=== PATIENT | male | born 1950 | race Caucasian/White ===

== ENCOUNTER → 2016-09-02 | Outpatient (CLI) | payer OTHER, MEDICARE ==
--- NOTE | 2016-09-02 10:30 | US ---
Renal Sonography, retroperitoneal complete HISTORY: Proteinuria, post right nephrectomy for renal cell cancer COMPARISON: CT abdomen and pelvis November 21, 2011 FINDINGS: The patient has a solitary left kidney. There is no hydronephrosis or perinephric fluid. Re nal cortical echogenicity is slightly prominent compared to the medullary pyramids. A left lower pole and smaller upper pole peripelvic cyst were present previously. There is no solid renal mass lesion or stone formation. A left ureteral jet is present in the urinary bladder. Prevoid urinary bladder vo lume = 83 mL. Postvoid residual = 20 mL. No urinary bladder abnormality is identified. Impression: Mildly increased renal cortical echogenicity is consistent with medical renal disease. Th ere is no obstruction.
== END ==
LOC: CIMAGING 09:05
PROVIDERS: ATTEND Internal Medicine Nephrology
DX: N18.9 Chronic kidney disease, unspecified (principal)
CPT/HCPCS: 76770-PO

== ENCOUNTER → 2016-11-18 | Outpatient (CLI) | payer OTHER, MEDICARE | LOC: BMCIMAGING 10:28 | PROVIDERS: ATTEND Internal Medicine | DX: R05 Cough (principal) ==

== ENCOUNTER 2017-04-29 07:01 | Inpatient (IN) | payer OTHER, MEDICARE ==
[2017-04-29] MEDS ORDERED: FAMOTIDINE 20 MG TAB PO ONE (07:03)
[2017-04-29] MEDS ORDERED: DIAZEPAM 5 MG TAB PO ONE (07:03)
[2017-04-29] MEDS ORDERED: ASPIRIN EC 325 MG TAB PO ONE (07:03)
[2017-04-29] MEDS ORDERED: diphenhydrAMINE 25 MG CAP PO ONE (07:03)
[2017-04-29] MEDS ORDERED: NS 1,000 ML IV ONE (07:03)
--- NOTE | 2017-04-29 07:21 | CPEKG ---
Heart Rate: 48 RR Interval: 1250 P-R Interval: 164 QRSD Interval: 152 QT Interval: 456 QTC Interval: 408 P [place]: 58 QRS [place]: 93 T Wave [place]: -15 EKG Severity - ABNORMAL ECG - EKG Impression: SINUS BRADYCARDIA EKG Impression: RBBB AND LPFB EKG Impression: BORDERLINE INFERIOR Q WAVES Electronically Signed By: Nathaly Mojica 29-Apr-2017 10:00:10
[2017-04-29] MEDS ORDERED: ASPIRIN 81 MG CHEWABLE TAB ONE (07:26)
[2017-04-29 07:35] LABS: % IMMATURE GRANULYOCYTES 0.2 % (0.0-1.1); ABSOLUTE IMMATURE GRANULOCYTES 0.01 10^3/uL (0.00-0.10); ADD DIFF? NO; ADD MORPH? NO; ADD SCAN? NO; ATYPICAL LYMPHOCYTE FLAG 10 (0-99); FRAGMENT RBC FLAG 0 (0-99); HEMATOCRIT 47.3 % (40.0-51.0); HEMOGLOBIN 16.7 g/dL (13.7-17.5); LEFT SHIFT FLG 0 (0-99); LIPEMIA HEMOLYSIS FLAG 90 (0-99); MEAN CELL HEMOGLOBIN 31.7 pg (27.9-34.1); MEAN CELL HEMOGLOBIN CONCENTR. 35.3 g/dL (32.4-36.7); MEAN CELL VOLUME 89.8 fL (81.5-99.8); MEAN PLATELET VOLUME 10.7 fL (8.7-11.7); PLATELET CLUMPS FLAG 0 (0-99); PLATELET COUNT 216 10^3/uL (150-400); RED BLOOD CELL COUNT 5.27 10^6/uL (4.40-6.38); RED CELL DISTRIBUTION WIDTH 13.4 % (11.5-15.2)
[2017-04-29] MEDS ORDERED: ASPIRIN EC 81 MG TAB PO ONE (07:40)
[2017-04-29 07:43] LABS: INR 1.07 (0.83-1.16); PROTIME(PATIENT) 13.8 SEC (12.0-15.0)
[2017-04-29 07:49] LABS: ANION GAP 13 mEq/L (8-16); CALCIUM 9.3 mg/dL (8.5-10.4); CARBON DIOXIDE 22 mEq/l (22-31); CHLORIDE 106 mEq/L (97-110); CHOLESTEROL 175 mg/dL (140-220); CHOLESTEROL/HDL RATIO 5.15 RATIO (1.00-4.97); CREATININE 1.5 mg/dL (0.7-1.3); GLOMERULAR FILTRATION RATE 47; GLUCOSE 94 mg/dL (70-100); HIGH DENSITY LIPOPROTEIN 34 mg/dL (40-65); LOW DENSITY LIPOPROTEIN 119 mg/dL (80-100); MAGNESIUM 1.9 mg/dL (1.6-2.3); NON-HIGH DENSITY LIPOPROTEIN 141 mg/dL (90-129); POTASSIUM 4.2 mEq/L (3.5-5.2); SODIUM 141 mEq/L (134-144); TRIGLYCERIDE 110 mg/dL (40-150); VERY LOW DENSITY LIPOPROTEINS 22 mg/dL (8-25)
[2017-04-29] MEDS ORDERED: fentaNYL 100 MCG/2 ML INJ ONE (08:06)
[2017-04-29] MEDS ORDERED: MIDAZOLAM 2 MG/2 ML VIAL ONE ×2 (08:06→10:15)
[2017-04-29] MEDS ORDERED: LIDOCAINE 1% 300 MG/30 ML SDV ONE (08:06)
[2017-04-29] MEDS ORDERED: IOPAMIDOL (ISOVUE-370) 150 ML BTL IV ONE (08:06)
--- NOTE | 2017-04-29 08:48 | PDHPUP ---
History & Physical Update H&P update statement: This history and physical update is based on an assessment of the patient which was completed after admission or registration (within 24 hours), but prior to the surgery/procedure. H&P update: H&P reviewed & patient examined, no change in patient's condition since H&P completed
--- NOTE | 2017-04-29 08:48 | PDPROPOC ---
Sedation Plan of Care Sedation Plan of Care: vital signs stable, mental status noted, patient educated of risks, benefits, alternatives, patient can tolerate sedation ASA Classification: ASA 2 Planned drugs: fentanyl, midazolam Mallampati Score: Class 2 Mallampati Reference Image: Patient passed 3-3-2 rule?: Yes
[2017-04-29] MEDS ORDERED: BIVALIRUDIN 250 MG/5 ML VIAL IV ONE ×2 (09:58→10:04)
[2017-04-29] MEDS ORDERED: NITROGLYCERIN 1,500 MCG/15 ML VIAL MISC ONE (09:58)
[2017-04-29] MEDS ORDERED: HYDROCODONE/APAP 5/325 TAB PO PRN (10:29)
[2017-04-29] MEDS ORDERED: NITROGLYCERIN 0.4 MG BTL SL PRN (10:29)
[2017-04-29] MEDS ORDERED: OXYCODONE/APAP 5/325 TAB PO PRN (10:29)
[2017-04-29] MEDS ORDERED: ONDANSETRON 4 MG/2 ML VIAL IVP PRN (10:29)
[2017-04-29] MEDS ORDERED: ATROPINE SULFATE 1 MG/10 ML SYR IVP PRN (10:29)
--- NOTE | 2017-04-29 16:03 | PDDXCAT ---
Diagnostic Cath Note - . Date: 04/29/17 House Builder: Jakub Indication: High-risk criteria on noninvasive testing (choose option below) High-risk criteria on non-invasive testing: high-risk treadmill score (score<=- 11) - Procedure Procedure: other (intraoperative IVUS) - Findings-Left Heart Catheterization LAD: Please see Dr. Vee's dictation and the IVUS results below Complications: None. Estimated blood loss: <50ml Closure method: Angioseal Assessment: The patient has proximal and ostial LAD disease on angiography. Dr. Vee asked for intraoperative consultation for IVUS of the ostial LAD to confirm flow limiting obstruction of the blood vessel. Intervention: A 6 [place] 3.5 EBU catheter was used for guide catheter support. A 0.014 intuition wire was placed in the distal LAD using direct fluoroscopic and angiographic guidance. Intravascular ultrasound with a Nfocus Neuromedical IVUS catheter was then performed documenting a ostial LAD stenosis of 70%. The location of the lesion was a true ostial lesion with the adjacent ramus takeoff immediately next to the origin of the LAD this lesion was felt to be high risk for intervention using catheter based techniques. Consultation with Dr. Hassan for CV surgery using ALONSO to the LAD and possible rSVG to the diagonal is requested. Patient Problems: Problems Problem Status Onset Hydrocephalus Acute
--- NOTE | 2017-04-29 16:19 | CPIP ---
[f rep st] INVASIVE CARDIAC PROCEDURE DATE OF PROCEDURE: 04/29/2017 PROCEDURE PERFORMED: Left heart catheterization. INDICATION: Patient with exertional chest pain, pressure, shortness of breath, and dyspnea on exerti on that resolves with rest. The patient had high-risk findings on exercise treadmill stress test in [facility] office last week with [address]-segment depressions with exertion. DESCRIPTION OF PROCEDURE: After informed consent was obtained, the patient was brought to the [facility] catheterization lab where he was prepped and draped in sterile fashion. Using 1% lidocaine, the rig ht groin was anesthetized. Using the modified Seldinger technique, a 6-Austrian catheter was placed in the right common femoral artery without complications. A JL4 catheter was used to take images of the left coronary anatomy in multiple projections. The JL4 catheter was exchanged over a guidewire for a JR4 catheter. JR4 catheter was used to take images of the right coronary anatomy in multiple projecti ons. JR4 catheter was then used to cross the aortic valve. Left ventricular pressure was evaluated. A ortic valve gradient was assessed. Left ventriculogram was not performed secondary to history of a single kidney status post renal cell carcinoma, status post nephrectomy with baseline creatinine of 1.5, in order to spare contrast. FINDINGS: 1. Left main is normal-sized in caliber and trifurcates into a left anterior descending, left circum flex coronary artery, and ramus intermedius branch. There is no evidence of coronary disease within t he left main. 2. Left anterior descending demonstrates an ostial stenosis of 70% to 80%. The remainder of the LAD is free of coronary artery disease. There is 10% to 20% narrowing within the ostium of a moderate-siz ed first diagonal branch. 3. The ramus intermedius branch is the largest of the 3 vessels and is free of coronary artery disea se. The circumflex vessel has some mild lumen irregularities in the proximal segments but no evidence of flow-limiting coronary artery disease. 4. The right coronary artery is a dominant vessel. It bifurcates into PDA and PLV branch. There is e vidence of [id number] collaterals to the septal perforators from the distal RCA. There is no evide nce of coronary disease within the right coronary artery. HEMODYNAMICS: LVEDP 15 mmHg. AORTIC VALVE GRADIENT: None. CONCLUSIONS: Severe single-vessel disease with 70% to 80% stenosis of the ostium of the left anterio r descending. I reviewed these images with my interventional colleague. Decision was made for intravascular ultraso und of the left anterior descending artery, demonstrating calculated stenosis of 71%. PLAN: 1. We will now plan for intervention given the ostial nature of the stenosis. 2. Recommend surgical consultation with Dr. Blum for single-vessel coronary artery bypass graft de la paz rgery. 3. Right common femoral artery angiography demonstrated appropriate placement of right 6-Austrian femo ral catheter and underwent successful Angio-Seal closure. /[id number]/MODL
--- NOTE | 2017-04-29 17:46 | PDGENHP ---
History and Physical - Chief Complaint CAD - History of Present Illness This is a 66M with a 4 week history of worsening exertional chest pain and an abnormal stress test who is s/p left heart catheterization today which revealed CAD in need of surgical revascularization. Pt is currently comfortable without complaints. He denies a h/o light-headedness, weakness, chest palpitations, dyspnea, abdominal pain, or LE edema. History Information - Allergies/Home Medication List Allergies/Adverse Reactions: No Known Allergies Allergy (Unverified 12/24/14 19:27) Home Medications: Levothyroxine [Synthroid 112 mcg (*)] 112 mcg PO DAILY06 12/25/14 [Last Taken ] Cholecalciferol Vit D3 [Vitamin D3 2000 units tab (OTC)] 2,000 - 4,000 units PO DAILY 04/29/17 [Last Taken Unknown] Herbals/Supplements -Info Only 1 ea PO DAILY 04/29/17 [Last Taken Unknown] Losartan Potassium [Cozaar 50 mg (*)] 50 mg PO DAILY 04/29/17 [Last Taken 06:00] Multivitamins [Multivitamin (*)] 1 each PO DAILY 04/29/17 [Last Taken Unknown] I have personally reviewed and updated: medical history, social history, surgical history - Past Medical History hypertension Additional medical history: renal cell carcinoma, hypothyroidism - Surgical History Additional surgical history: right nephrectomy, left knee arthroscopy - Family History Positive for: cancer, CAD - Social History Smoking Status: Never smoked Alcohol Use: None Drug Use: None Review of Systems Review of Systems: Constitutional: Reports: no symptoms EENMT: Reports: no symptoms Cardiac: Reports: chest pain Respiratory: Reports: no symptoms Gastrointestinal: Reports: no symptoms Genitourinary: Reports: no symptoms Muscolosketal: Reports: no symptoms Skin: Reports: no symptoms Neurological: Reports: no symptoms Physical Exam Physical Exam: Temp Pulse Resp BP Pulse Ox 17 120/63 95 04/29/17 15:20 04/29/17 15:02 04/29/17 15:25 Constitutional: no apparent distress, appears nourished, not in pain, obese Eyes: anicteric sclera Ears, Nose, Mouth, Throat: moist mucous membranes, hearing normal Cardiovascular: pulses symmetric bilaterally, bradycardia, No carotid bruit Peripheral Pulses: 2+: dorsalis-pedis (R), dorsalis-pedis (L) Respiratory: clear to auscultation, No respiratory distress Gastrointestinal: soft, non-tender abdomen Skin: warm, normal color Musculoskeletal: full muscle strength Neurologic: AAOx3 Psychiatric: interacting appropriately, not anxious, not encephalopathic, thought process linear Lab Data & Imaging Review 04/29/17 07:20 04/29/17 07:20 WBC 4.57 10^3/uL (3.80-9.50) 04/29/17 07:20 RBC 5.27 10^6/uL (4.40-6.38) 04/29/17 07:20 Hgb 16.7 g/dL (13.7-17.5) 04/29/17 07:20 Hct 47.3 % (40.0-51.0) 04/29/17 07:20 MCV 89.8 fL (81.5-99.8) 04/29/17 07:20 MCH 31.7 pg (27.9-34.1) 04/29/17 07:20 MCHC 35.3 g/dL (32.4-36.7) 04/29/17 07:20 RDW 13.4 % (11.5-15.2) 04/29/17 07:20 Plt Count 216 10^3/uL (150-400) 04/29/17 07:20 MPV 10.7 fL (8.7-11.7) 04/29/17 07:20 Neut % (Auto) 58.9 % (39.3-74.2) 04/29/17 07:20 Lymph % (Auto) 25.8 % (15.0-45.0) 04/29/17 07:20 [place] % (Auto) 10.9 % (4.5-13.0) 04/29/17 07:20 Eos % (Auto) 3.3 % (0.6-7.6) 04/29/17 07:20 Baso % (Auto) 0.9 % (0.3-1.7) 04/29/17 07:20 Nucleat RBC Rel Count 0.0 % (0.0-0.2) 04/29/17 07:20 Absolute Neuts (auto) 2.69 10^3/uL (1.70-6.50) 04/29/17 07:20 Absolute Lymphs (auto) 1.18 10^3/uL (1.00-3.00) 04/29/17 07:20 Absolute Monos (auto) 0.50 10^3/uL (0.30-0.80) 04/29/17 07:20 Absolute Eos (auto) 0.15 10^3/uL (0.03-0.40) 04/29/17 07:20 Absolute Basos (auto) 0.04 10^3/uL (0.02-0.10) 04/29/17 07:20 Absolute Nucleated RBC 0.00 10^3/uL (0-0.01) 04/29/17 07:20 Immature Gran % 0.2 % (0.0-1.1) 04/29/17 07:20 Immature Gran # 0.01 10^3/uL (0.00-0.10) 04/29/17 07:20 PT 13.8 SEC (12.0-15.0) 04/29/17 07:20 INR 1.07 (0.83-1.16) 04/29/17 07:20 Sodium 141 mEq/L (134-144) 04/29/17 07:20 Potassium 4.2 mEq/L (3.5-5.2) 04/29/17 07:20 Chloride 106 mEq/L (97-110) 04/29/17 07:20 Carbon Dioxide 22 mEq/l (22-31) 04/29/17 07:20 Anion Gap 13 mEq/L (8-16) 04/29/17 07:20 BUN 21 mg/dL (7-23) 04/29/17 07:20 Creatinine 1.5 mg/dL (0.7-1.3) H 04/29/17 07:20 Estimated GFR 47 04/29/17 07:20 Glucose 94 mg/dL (70-100) 04/29/17 07:20 Calcium 9.3 mg/dL (8.5-10.4) 04/29/17 07:20 Magnesium 1.9 mg/dL (1.6-2.3) 04/29/17 07:20 Triglycerides 110 mg/dL (40-150) 04/29/17 07:20 Cholesterol 175 mg/dL (140-220) 04/29/17 07:20 Cholesterol Risk Factr 1.2 (0.2-1.0) H 04/29/17 07:20 LDL Cholesterol, Calc 119 mg/dL (80-100) H 04/29/17 07:20 LDL Risk Factor 1.0 (0.2-1.0) 04/29/17 07:20 VLDL Cholesterol 22 mg/dL (8-25) 04/29/17 07:20 Non-HDL Cholesterol 141 mg/dL (90-129) H 04/29/17 07:20 HDL Cholesterol 34 mg/dL (40-65) L 04/29/17 07:20 LDL/HDL Ratio 3.50 RATIO (1.00-3.64) 04/29/17 07:20 Cholesterol/HDL Ratio 5.15 RATIO (1.00-4.97) H 04/29/17 07:20 Imaging Review: CXR and carotid US pending EKG Interpretation: Positive for: other (Bradycardia) Assessment & Plan Assessment: 66M with CAD in need of CABG Plan: - Plan for CABG with Dr. Hassan on Thursday morning - BMP in AM to re-evaluate Cr - CXR/carotid US ordered - Consents on chart
[2017-04-30 05:57] LABS: ANION GAP 9 mEq/L (8-16); CALCIUM 8.7 mg/dL (8.5-10.4); CARBON DIOXIDE 24 mEq/l (22-31); CHLORIDE 105 mEq/L (97-110); CREATININE 1.5 mg/dL (0.7-1.3); GLOMERULAR FILTRATION RATE 47; GLUCOSE 87 mg/dL (70-100); POTASSIUM 4.7 mEq/L (3.5-5.2); SODIUM 138 mEq/L (134-144)
[2017-04-30] MEDS: LEVOTHYROXINE 112 MCG TAB PO SCH (06:54)
[2017-04-30 09:28] LABS: HEMOGLOBIN A1C 5.5 % (4.0-6.0)
[2017-04-30] MEDS: LOSARTAN POTASSIUM 50 MG TAB PO SCH (10:00)
--- NOTE | 2017-04-30 15:55 | ASMTCMCOM ---
CM Note CM Note Notes: Pt is a 66 y/o man admitted w/ CAD. Pt is scheduled to have an open heart tomorrow. Pt will most likely d/c independent when medically stable. Therapies are not ordered. CM available for changes. Date Signed: 04/30/2017 03:54 PM Electronically Signed By:JOSE Johnson
[2017-04-30] MEDS: MUPIROCIN 2% 22 GM OINT NS SCH (20:15)
[2017-04-30] MEDS ORDERED: CHLORHEXIDINE GLUC HIBICLENS 118 ML BTL TP SCH (21:00)
[2017-05-01 05:41] LABS: ANION GAP 10 mEq/L (8-16); CALCIUM 8.9 mg/dL (8.5-10.4); CARBON DIOXIDE 21 mEq/l (22-31); CHLORIDE 107 mEq/L (97-110); CREATININE 1.3 mg/dL (0.7-1.3); GLOMERULAR FILTRATION RATE 55; GLUCOSE 92 mg/dL (70-100); POTASSIUM 4.4 mEq/L (3.5-5.2); SODIUM 138 mEq/L (134-144)
[2017-05-01] MEDS ORDERED: PAPAVERINE HCL 60 MG in NS 100 ML IV ONE (06:00)
[2017-05-01] MEDS ORDERED: SODIUM BICARBONATE 20 MEQ, LIDOCAINE 1% 10 ML in NORMOSOL-R 1,000 ML MISC ONE (06:00)
[2017-05-01] MEDS ORDERED: ceFAZolin 2 GM/DEXTROSE 100 ML IV ONE (06:00)
[2017-05-01] MEDS ORDERED: PHENYLEPHRINE HCL 50 MG in NS 250 ML IV ONE (06:00)
[2017-05-01] MEDS ORDERED: AMINOCAPROIC ACID 5 GM/20 ML VIAL IV ONE (06:00)
[2017-05-01] MEDS ORDERED: MANNITOL 20% 50 GM/250 ML BAG IV ONE (06:00)
[2017-05-01] MEDS ORDERED: CITRATE DEXTROSE SOLN 500 ML BAG MISC ONE (06:00)
[2017-05-01] MEDS ORDERED: VERAPAMIL 5 MG, NITROGLYCERIN 2.5 MG, HEPARIN 500 UNIT, SODIUM BICARBONATE 0.2 MEQ in L... MISC ONE (06:00)
[2017-05-01] MEDS ORDERED: INSULIN REGULAR HUMAN 100 UNIT in NS 100 ML IV ONE (06:00)
[2017-05-01] MEDS ORDERED: POTASSIUM Cl (KCl) 20 MEQ/50 ML BAG IV ONE (06:13)
[2017-05-01] MEDS ORDERED: ALBUMIN 5% 250 ML BOTTLE IV ONE (06:13)
[2017-05-01] MEDS ORDERED: AMINOCAPROIC ACID 5 GM/20 ML VIAL ONE (06:13)
[2017-05-01] MEDS ORDERED: CALCIUM CHLORIDE 1 GM/10 ML INJ ONE (06:13)
[2017-05-01] MEDS ORDERED: MILRINONE/DEXTROSE/100 ML BAG IV ONE (06:13)
[2017-05-01] MEDS ORDERED: PROTAMINE SULFATE 50 MG/5 ML VIAL IVP ONE (06:13)
[2017-05-01] MEDS ORDERED: NA BICARBONATE 50 MEQ/50 ML VIAL ONE (06:14)
[2017-05-01] MEDS ORDERED: DOPamine/DEXTROSE/250 ML BAG IV ONE (06:14)
[2017-05-01] MEDS ORDERED: niCARdipine/NACL/200 ML BAG IV ONE (06:14)
[2017-05-01] MEDS ORDERED: LIDOCAINE 2% 100 MG/5 ML SYR ONE ×2 (06:14→09:27)
[2017-05-01] MEDS ORDERED: CITRATE DEXTROSE SOLN 500 ML BAG ONE (06:14)
[2017-05-01] MEDS ORDERED: ADENOSINE 6 MG/2 ML VIAL ONE (06:15)
[2017-05-01] MEDS ORDERED: MAGNESIUM SULFATE 1 GM/2 ML VIAL ONE (06:15)
[2017-05-01] MEDS ORDERED: methylPREDNISolone SOD SUCC 1 GM/8 ML VIAL ONE (06:15)
[2017-05-01] MEDS ORDERED: AMIODARONE HCL 150 MG/3 ML VIAL ONE (06:15)
[2017-05-01] MEDS ORDERED: ceFAZolin 1 GM VIAL ONE (06:16)
[2017-05-01] MEDS ORDERED: HEPARIN 10,000 UNIT/10 ML MDV ONE (06:16)
--- NOTE | 2017-05-01 07:01 | PDANEPAE ---
ANE History of Present Illness 66 yo for cabg HTN CRI Hypothroid ANE Past Medical History - Cardiovascular History Hx Hypertension: Yes - Pulmonary History Hx Oxygen in Use at Home: No Hx Sleep Apnea: No Sleep Apnea Screening Result - Last Documented: Positive - Endocrine History Hx Diabetes: No - Chronic Pain History Chronic Pain: No ANE Review of Systems Review of Systems: - Exercise capacity METS (RN): 4 METS ANE Patient History - Allergies Allergies/Adverse Reactions: No Known Allergies Allergy (Unverified 12/24/14 19:27) - Home Medications Home medications: home medication list seen and reviewed Home Medications: Levothyroxine [Synthroid 112 mcg (*)] 112 mcg PO DAILY06 12/25/14 [Last Taken ] Cholecalciferol Vit D3 [Vitamin D3 2000 units tab (OTC)] 2,000 - 4,000 units PO DAILY 04/29/17 [Last Taken Unknown] Herbals/Supplements -Info Only 1 ea PO DAILY 04/29/17 [Last Taken Unknown] Losartan Potassium [Cozaar 50 mg (*)] 50 mg PO DAILY 04/29/17 [Last Taken 06:00] Multivitamins [Multivitamin (*)] 1 each PO DAILY 04/29/17 [Last Taken Unknown] - NPO status NPO Status: no food or drink >8 hours NPO Since - Liquids (Date): 05/01/17 NPO Since - Liquids (Time): 00:00 NPO Since - Solids (Date): 05/01/17 NPO Since - Solids (Time): 00:00 - Anes Hx Anes Hx: no prior problems - Smoking Hx Smoking Status: Never smoked - Alcohol Use Alcohol Use: None ANE Labs/Vital Signs - Labs Result Diagrams: 04/29/17 07:20 05/01/17 04:10 - Vital Signs Blood Pressure: 119/62 Heart Rate: 43 Respiratory Rate: 18 O2 Sat (%): 94 Height: 5 ft 10 in Weight: 107.6 kg ANE Physical Exam - Airway Neck exam: FROM Mallampati Score: Class 2 Mouth exam: normal dental/mouth exam - Cardiovascular Cardiovascular: regular rate and rhythym - ASA Status ASA Status: IV ANE Anesthesia Plan Anesthesia Plan: general endotracheal anesthesia
[2017-05-01] MEDS ORDERED: MIDAZOLAM 2 MG/2 ML VIAL IVP ONE (07:02)
[2017-05-01] MEDS ORDERED: PROPOFOL/EMULSION 500 MG/50 ML BOTTLE IV ONE ×2 (07:10→08:54)
[2017-05-01] MEDS ORDERED: SUFentanil 250 MCG/5 ML AMP ONE (07:10)
--- NOTE | 2017-05-01 10:19 | POSTOPPROG ---
Post Op Note Date of Operation: 05/01/17 Surgeon: Drew Hassan Onion Topper: Víctor WONG Anesthesia: GET(General Endotracheal) Pre-op Diagnosis: Coronary artery disease Post-op Diagnosis: Same Indication: CAD Procedure: CABG x 1 w/ ALONSO - LAD Findings: CAD Inf/Abcess present in the surg proc area at time of surgery?: No EBL: Minimal (Unable to measure) Complications: None
[2017-05-01] MEDS ORDERED: ONDANSETRON DISINTEGRATING 4 MG TAB PO PRN (10:24)
[2017-05-01] MEDS ORDERED: METOCLOPRAMIDE 10 MG/2 ML VIAL IVP PRN (10:24)
[2017-05-01] MEDS ORDERED: ONDANSETRON 4 MG/2 ML VIAL IVP PRN (10:24)
[2017-05-01] MEDS ORDERED: PANTOPRAZOLE SODIUM 40 MG in NS 100 ML IV ONE (10:24)
[2017-05-01] MEDS ORDERED: POTASSIUM Cl (KCl) 50 ML IV PRN (10:24)
[2017-05-01] MEDS ORDERED: MAGNESIUM HYDROXIDE 30 ML UDCUP PO PRN (10:24)
[2017-05-01] MEDS ORDERED: SODIUM CL NASAL 45 ML BTL EACHNARE PRN (10:24)
[2017-05-01] MEDS ORDERED: MEPERIDINE 25 MG/ML SYR IVP PRN (10:24)
[2017-05-01] MEDS ORDERED: POLYETHYLENE GLYCOL 3350 17 GM PKT PO PRN (10:24)
[2017-05-01] MEDS ORDERED: BISACODYL 10 MG SUPP PR PRN (10:24)
[2017-05-01] MEDS ORDERED: D50W 25 GM/50 ML SYR IVP PRN (10:24)
[2017-05-01] MEDS ORDERED: fentaNYL 100 MCG/2 ML INJ IVP PRN (10:24)
[2017-05-01] MEDS ORDERED: MAGNESIUM SULF 2 GM/WATER 50 ML IV ONE (10:24)
[2017-05-01] MEDS ORDERED: CEPACOL LOZENGE PO PRN (10:24)
[2017-05-01] MEDS ORDERED: ACETAMINOPHEN 325 MG TAB PO PRN (10:24)
[2017-05-01] MEDS ORDERED: LACTULOSE 20 GM/30 ML UDCUP PO PRN (10:24)
[2017-05-01] MEDS ORDERED: ACETAMINOPHEN 650 MG SUPP PR PRN (10:24)
[2017-05-01] MEDS ORDERED: INSULIN REGULAR HUMAN 100 UNIT in NS 100 ML IV SCH (10:30)
[2017-05-01] MEDS ORDERED: NS 1,000 ML IV SCH (10:30)
[2017-05-01] MEDS: ALBUMIN 5% 250 ML IV PRN ×2 (10:45→12:50)
--- NOTE | 2017-05-01 11:16 | POSTANESTH ---
Post Anesthetic Evaluation Cardiovascular Status: Normal, Stable Respiratory Status: Other, See Comment Level of Consciousness/Mental Status: Unconscious Pain Control: Adequate, Prn Tx Ordered Nausea/Vomiting Control: Adequate, Prn Tx Ordered (in sicu on vent, sedated)
[2017-05-01] MEDS: LEVOTHYROXINE 112 MCG TAB PO SCH (11:25)
[2017-05-01] MEDS: MUPIROCIN 2% 22 GM OINT NS SCH ×2 (11:26→20:36)
[2017-05-01] MEDS: LOSARTAN POTASSIUM 50 MG TAB PO SCH (11:26)
--- NOTE | 2017-05-01 11:29 | CPEKG ---
Heart Rate: 81 RR Interval: 741 P-R Interval: 172 QRSD Interval: 148 QT Interval: 428 QTC Interval: 497 P [place]: 63 QRS [place]: 89 T Wave [place]: -9 EKG Severity - ABNORMAL ECG - EKG Impression: SINUS RHYTHM EKG Impression: RBBB AND LPFB EKG Impression: BORDERLINE INFERIOR Q WAVES Electronically Signed By: Nathaly Mojica 01-May-2017 11:55:27
[2017-05-01] MEDS: ceFAZolin 2 GM/DEXTROSE 100 ML IV SCH ×2 (13:01→21:40)
--- NOTE | 2017-05-01 14:07 | GOP ---
[f rep st] OPERATIVE REPORT DATE OF OPERATION: 05/01/2017 SURGEON: Drew Hassan MD [employer] COUNTER SALES PERSON: Sravan Renee PA-C. PREOPERATIVE DIAGNOSIS: Coronary artery disease. POSTOPERATIVE DIAGNOSIS: Coronary artery disease. PROCEDURE PERFORMED: One-vessel coronary artery bypass with left internal mammary artery bypass to t he left anterior descending artery. FINDINGS: The patient's chest wall was incredibly stiff, and the sternum was very thick and dense. The aorta was normal. Heart contracted well. The LAD was 2 mm with good quality. The internal mamm ean artery was of adequate quality and caliber. INDICATIONS: This is a 66-year-old with angina and a strongly positive treadmill. Catheterization s howed an ostial left anterior descending artery stenosis, confirmed by intravascular ultrasound, with preserved left ventricular function. He is referred for surgery. DESCRIPTION OF PROCEDURE: Consent was signed. The patient was taken to the operating room. A centr al line and arterial lines were inserted. General endotracheal anesthesia was administered. ESHA was performed. The patient was prepped and draped. Median sternotomy was performed. Left internal rupesh cate artery was mobilized, pursestrings were placed. The patient was heparinized, cannulated, and pl aced on bypass. He was kept normothermic. The aorta was cross-clamped. Cold potassium-containing b lood cardioplegia was infused in the aortic root. Left internal mammary artery was anastomosed to th e mid left anterior descending artery. Pericardium was incised. Cross-clamp was removed. The heart spontaneously converted to a sinus bradycardia. Pacemaker wires were placed, and the heart did spee d up nicely. Ventilation was started, 1 gram of calcium chloride was administered, and the patient w as then easily weaned off cardiopulmonary bypass. Hemodynamics were excellent. Protamine sulfate wa s administered. Hemostasis was obtained. The patient was decannulated. Mediastinal fat was closed. Right-angled chest tube was placed in the left chest, straight tube in the mediastinum. The sternu m was closed with #5 stainless steel wires, and the remainder of the chest was closed in the usual fa shion. Dressings were applied. COMPLICATIONS: None. POSTOPERATIVE CONDITION: Stable. /[id number]/MODL
[2017-05-01 14:43] LABS: CALCULATED OXYGEN SATURATION 94 % (92-95)
[2017-05-01] MEDS ORDERED: ALBUMIN 5% 500 ML BOTTLE IV ONE (15:37)
[2017-05-01] MEDS ORDERED: ALBUMIN 5% 500 ML IV ONE (16:00)
[2017-05-01] MEDS: SENNOSIDES/DOCUSATE SODIUM TAB PO SCH (20:36)
[2017-05-01 20:39] LABS: HEMATOCRIT 38.2 % (40.0-51.0); HEMOGLOBIN 13.6 g/dL (13.7-17.5); MEAN CELL HEMOGLOBIN 31.8 pg (27.9-34.1); MEAN CELL HEMOGLOBIN CONCENTR. 35.6 g/dL (32.4-36.7); MEAN CELL VOLUME 89.3 fL (81.5-99.8); RED BLOOD CELL COUNT 4.28 10^6/uL (4.40-6.38); RED CELL DISTRIBUTION WIDTH 13.3 % (11.5-15.2)
[2017-05-02] MEDS: ALBUMIN 5% 250 ML IV PRN ×2 (00:22→06:50)
[2017-05-02] MEDS: ceFAZolin 2 GM/DEXTROSE 100 ML IV SCH ×3 (05:32→23:11)
[2017-05-02] MEDS: LEVOTHYROXINE 112 MCG TAB PO SCH (06:04)
[2017-05-02 06:34] LABS: % IMMATURE GRANULYOCYTES 0.3 % (0.0-1.1); ABSOLUTE IMMATURE GRANULOCYTES 0.05 10^3/uL (0.00-0.10); ADD DIFF? NO; ADD MORPH? NO; ADD SCAN? NO; ATYPICAL LYMPHOCYTE FLAG 0 (0-99); FRAGMENT RBC FLAG 0 (0-99); HEMATOCRIT 37.2 % (40.0-51.0); HEMOGLOBIN 12.9 g/dL (13.7-17.5); LEFT SHIFT FLG 10 (0-99); LIPEMIA HEMOLYSIS FLAG 90 (0-99); MEAN CELL HEMOGLOBIN 31.5 pg (27.9-34.1); MEAN CELL HEMOGLOBIN CONCENTR. 34.7 g/dL (32.4-36.7); MEAN PLATELET VOLUME 11.2 fL (8.7-11.7); PLATELET CLUMPS FLAG 10 (0-99); PLATELET COUNT 179 10^3/uL (150-400); RED BLOOD CELL COUNT 4.09 10^6/uL (4.40-6.38); RED CELL DISTRIBUTION WIDTH 13.5 % (11.5-15.2)
--- NOTE | 2017-05-02 06:55 | SOAPPROG ---
SOAP Progress Note Assessment/Plan: Assessment: POD1 s/p CABG x 1 (ALONSO-LAD) Severe LAD disease with unstable angina s/p CABG x 1. On ASA. Will initiate statin. No BB or ACEi to avoid hypotension. Respiratory insufficiency stable. Tolerating extubation, currently on 3L NC with adequate O2 sats. Acute postop blood loss anemia stable with H&H 12.9/37.2 (12.6/37). Hx of renal cell carcinoma s/p nephrectomy stable with baseline Cr 1.5. Normal renal lytes with Cr 1.3 and good urine output. Will d/c lyles today. Hypothyroidism stable. Will resume home Synthroid. Left pleural chest tube output 85mls/12hrs, 85mls/24hrs. No airleak appreciated this am. Will d/c today. Mediastinal chest tube output 85mls/12hrs, 285mls/24hrs. Will d/c today. Pain control inadequate. Will switch to Percocet. Deconditioning s/p surgery. PT/OT. Encourage ambulation/IS. Plan: D/c lyles D/c Nathalie D/c PIV Will d/c chest tubes today. Transfer to Telemetry today. Subjective: Patient reports inadequate pain control. "I don't want to take Mize because it makes me nauseous." Objective: Vital Signs Temp Pulse Resp BP Pulse Ox 36.9 C 68 24 H 87/48 L 95 05/02/17 06:00 05/02/17 06:00 05/02/17 06:00 05/02/17 06:00 05/02/17 06:00 Laboratory Results 05/02/17 06:25 05/01/17 05/02/17 05/03/17 05:59 05:59 05:59 Intake Total 1060 2817 250 Output Total 300 1540 Balance 760 1277 250 PT 13.8 SEC (12.0-15.0) 04/29/17 07:20 INR 1.07 (0.83-1.16) 04/29/17 07:20 Physical Exam - Physical Exam General Appearance: WD/WN, alert, no apparent distress Respiratory: lungs clear, decreased breath sounds (bases) Cardiac/Chest: regular rate, rhythm, other (sternum stable, sternotomy c/d/i) Abdomen: normal bowel sounds, non-tender, soft (non-distended), other (non- distended) Skin: warm/dry Extremities: other (warm, no lower extremity edema) Neuro/Psych: alert, normal mood/affect, oriented x 3 ICD10 Worksheet Patient Problems: Problems Problem Status Onset CAD in [place] artery Acute Sinus bradycardia Acute CKD (chronic kidney disease), stage III Chronic HTN (hypertension) Chronic Hypothyroidism Chronic Peripheral neuropathy Chronic
[2017-05-02 07:00] LABS: ANION GAP 11 mEq/L (8-16); CARBON DIOXIDE 16 mEq/l (22-31); CHLORIDE 109 mEq/L (97-110); CREATININE 1.3 mg/dL (0.7-1.3); GLOMERULAR FILTRATION RATE 55; GLUCOSE 117 mg/dL (70-100); POTASSIUM 4.7 mEq/L (3.5-5.2); SODIUM 136 mEq/L (134-144)
--- NOTE | 2017-05-02 07:47 | SOAPPROG ---
SOAP Progress Note Assessment/Plan: Assessment: Plan: Subjective: Afebrile VSS NSR CT 370cc since OR Good uo Up in chair. Mild pain Lungs clear ant Cor RRR Labs stable. Plan - dc tubes, transfer Objective: Vital Signs Temp Pulse Resp BP Pulse Ox 36.9 C 69 18 96/52 L 95 05/02/17 07:00 05/02/17 07:00 05/02/17 07:00 05/02/17 07:00 05/02/17 07:00 Laboratory Results 05/02/17 06:25 05/02/17 06:25 05/01/17 05/02/17 05/03/17 05:59 05:59 05:59 Intake Total 1060 2817 250 Output Total 300 1540 Balance 760 1277 250 PT 13.8 SEC (12.0-15.0) 04/29/17 07:20 INR 1.07 (0.83-1.16) 04/29/17 07:20 ICD10 Worksheet Patient Problems: Problems Problem Status Onset CAD in [place] artery Acute Sinus bradycardia Acute CKD (chronic kidney disease), stage III Chronic HTN (hypertension) Chronic Hypothyroidism Chronic Peripheral neuropathy Chronic
[2017-05-02] MEDS ORDERED: ASPIRIN 81 MG CHEWABLE TAB PO SCH (09:00)
[2017-05-02] MEDS ORDERED: ASPIRIN 81 MG CHEWABLE TAB TUBE PRN (09:00)
[2017-05-02] MEDS: OXYCODONE/APAP 5/325 TAB PO PRN ×2 (09:13→18:32)
[2017-05-02] MEDS: SENNOSIDES/DOCUSATE SODIUM TAB PO SCH ×2 (09:13→20:08)
[2017-05-02] MEDS: PANTOPRAZOLE SODIUM 40 MG TAB PO SCH (09:14)
[2017-05-02] MEDS ORDERED: LACTULOSE 20 GM/30 ML UDCUP PO PRN (09:30)
[2017-05-02] MEDS ORDERED: BISACODYL 10 MG SUPP PR PRN (09:30)
[2017-05-02] MEDS ORDERED: MAGNESIUM HYDROXIDE 30 ML UDCUP PO PRN (09:30)
[2017-05-02] MEDS ORDERED: CEPACOL LOZENGE PO PRN (09:30)
[2017-05-02] MEDS ORDERED: ACETAMINOPHEN 325 MG TAB PO PRN (09:30)
[2017-05-02] MEDS ORDERED: POLYETHYLENE GLYCOL 3350 17 GM PKT PO PRN (09:30)
[2017-05-02] MEDS: MUPIROCIN 2% 22 GM OINT NS SCH ×2 (10:36→20:10)
[2017-05-02] MEDS: ASPIRIN EC 81 MG TAB PO SCH (10:42)
[2017-05-02] MEDS: SODIUM CL NASAL 45 ML BTL EACHNARE SCH (20:11)
[2017-05-02] MEDS ORDERED: ceFAZolin 2 GM/DEXTROSE 100 ML IV ONE (23:00)
[2017-05-03] MEDS: OXYCODONE/APAP 5/325 TAB PO PRN ×4 (04:37→21:23)
[2017-05-03] MEDS: LEVOTHYROXINE 112 MCG TAB PO SCH (04:37)
--- NOTE | 2017-05-03 07:04 | SOAPPROG ---
SOAP Progress Note Assessment/Plan: Assessment: POD2 s/p CABG x 1 (ALONSO-LAD) Severe LAD disease with unstable angina s/p CABG x 1. On ASA and Lipitor. Will start BB today. No ACEi to avoid hypotension. Rhythm stable. Currently in SR 80-90's. On po Amio. Respiratory insufficiency stable. Currently on 3.5L NC with complaints of increased SOB today. Will start Lasix. Acute postop blood loss anemia stable. Hx of renal cell carcinoma s/p nephrectomy stable with baseline Cr 1.5. BMP for today pending. Patient had low urine output yesterday. Will start Lasix today and continue to bladder scan prn. Postop hypervolemia with patient up 3kg from preop weight. Will start Lasix today. Hypothyroidism stable. On Synthroid. Pain control adequate, on Percocet. Deconditioning s/p surgery. Continue PT/OT. Encourage ambulation/IS. Plan: D/c pacing wires Start Lasix Start Metoprolol Start Amio Check BMP to assess renal function Subjective: Patient reports increased SOB today. Reports good pain control. Objective: Vital Signs Temp Pulse Resp BP Pulse Ox 36.9 C 72 18 105/70 96 05/03/17 04:00 05/03/17 04:00 05/03/17 04:00 05/03/17 04:00 05/03/17 04:00 Laboratory Results 05/02/17 06:25 05/02/17 06:25 05/02/17 05/03/17 05/04/17 05:59 05:59 05:59 Intake Total 2817 1089 Output Total 1540 350 Balance 1277 739 PT 13.8 SEC (12.0-15.0) 04/29/17 07:20 INR 1.07 (0.83-1.16) 04/29/17 07:20 Physical Exam - Physical Exam General Appearance: WD/WN, alert, no apparent distress Respiratory: decreased breath sounds, crackles Cardiac/Chest: regular rate, rhythm, other (sternum stable, sternotomy c/d/i) Abdomen: normal bowel sounds, non-tender, soft (non-distended) Skin: warm/dry Extremities: pedal edema (lower extremities) Neuro/Psych: alert, normal mood/affect, oriented x 3 ICD10 Worksheet Patient Problems: Problems Problem Status Onset CAD in [place] artery Acute S/P CABG x 1 Acute Sinus bradycardia Acute CKD (chronic kidney disease), stage III Chronic HTN (hypertension) Chronic Hypothyroidism Chronic Peripheral neuropathy Chronic
--- NOTE | 2017-05-03 08:01 | SOAPPROG ---
SOAP Progress Note Assessment/Plan: Assessment: Plan: Subjective: Afebrile VSS NSR BP 109 syst UO only 350cc/24hr Weight 7lb >preop c/o mild SOB. Minimal pain Wound clean Cor RRR w/o m Lungs BBS L base with rhonchi No ankle edema Plan - check labs, Lasix Objective: Vital Signs Temp Pulse Resp BP Pulse Ox 36.9 C 72 18 105/70 96 05/03/17 04:00 05/03/17 04:00 05/03/17 04:00 05/03/17 04:00 05/03/17 04:00 Laboratory Results 05/02/17 06:25 05/02/17 06:25 05/02/17 05/03/17 05/04/17 05:59 05:59 05:59 Intake Total 2817 1089 Output Total 1540 350 Balance 1277 739 PT 13.8 SEC (12.0-15.0) 04/29/17 07:20 INR 1.07 (0.83-1.16) 04/29/17 07:20 ICD10 Worksheet Patient Problems: Problems Problem Status Onset CAD in [place] artery Acute S/P CABG x 1 Acute Sinus bradycardia Acute CKD (chronic kidney disease), stage III Chronic HTN (hypertension) Chronic Hypothyroidism Chronic Peripheral neuropathy Chronic
[2017-05-03] MEDS: FUROSEMIDE 40 MG/4 ML VIAL IVP SCH ×2 (08:54→11:17)
[2017-05-03] MEDS: SENNOSIDES/DOCUSATE SODIUM TAB PO SCH ×2 (08:55→21:23)
[2017-05-03] MEDS: AMIODARONE HCL 200 MG TAB PO SCH ×2 (08:56→21:24)
[2017-05-03] MEDS: ASPIRIN EC 81 MG TAB PO SCH (08:56)
[2017-05-03] MEDS: PANTOPRAZOLE SODIUM 40 MG TAB PO SCH (08:56)
[2017-05-03] MEDS ORDERED: NEOMY SULF/BACITRAC ZN/POLY 30 GM OINTTUBE TP SCH (09:00)
[2017-05-03 09:20] LABS: ANION GAP 9 mEq/L (8-16); CALCIUM 8.2 mg/dL (8.5-10.4); CARBON DIOXIDE 21 mEq/l (22-31); CHLORIDE 105 mEq/L (97-110); CREATININE 1.5 mg/dL (0.7-1.3); GLOMERULAR FILTRATION RATE 47; GLUCOSE 119 mg/dL (70-100); POTASSIUM 4.8 mEq/L (3.5-5.2); SODIUM 135 mEq/L (134-144)
[2017-05-03] MEDS: ATORVASTATIN CALCIUM 40 MG TAB PO SCH (10:11)
[2017-05-03] MEDS: METOPROLOL TARTRATE 25 MG TAB PO SCH ×3 (10:12→21:14)
--- NOTE | 2017-05-03 10:51 | ASMTCMCOM ---
CM Note CM Note Notes: 05/03/2017 Case Management Note: Met w/pt. Pt lives along but plans for brother Marily ([phone]) to take home from hospital and stay with pt for 1 to 2 weeks. Pt will use Via transport or friends to participate in Cardiac Outpatient Rehab. PT recommends Home w/ outpatient rehab. Pt baseline activity levels includes international travel and multiple road trips a year. Case Management d/c poc: Home independent w/family support when medically stable. 04/30/2017 CM Note Pt is a 66 y/o man admitted w/ CAD. Pt is scheduled to have an open heart tomorrow. Pt will most likely d/c independent when medically stable. Therapies are not ordered. CM available for changes. Date Signed: 05/03/2017 10:51 AM Electronically Signed By:Deedee Martin RN
[2017-05-03] MEDS: SODIUM CL NASAL 45 ML BTL EACHNARE SCH ×2 (16:25→21:14)
[2017-05-04] MEDS: LEVOTHYROXINE 112 MCG TAB PO SCH (05:22)
[2017-05-04] MEDS: OXYCODONE/APAP 5/325 TAB PO PRN (05:22)
--- NOTE | 2017-05-04 07:24 | SOAPPROG ---
SOAP Progress Note Assessment/Plan: POD #3: Urgent CABGx1 (ALONSO-LAD) Unstable angina with severe ostial LAD disease and normal LV function s/p CABGx1 - Continue BB/ASA/statin for secondary prevention - Amiodarone for AF prophylaxis - DVT prophylaxis with SCDs alone - Continue Lasix for post-op fluid overload - All tubes and wires out Acute blood loss anemia - Stable without the need for blood product transfusions Respiratory insufficiency - Oxygen demand lower today, wean as tolerated h/o right nephrectomy with baseline Cr. 1.5 - Cr yesterday 1.5 with adequate urine output - Continue Lasix for fluid overload and monitor Cr Disposition - Home without services in the next day or two 05/04/17 08:27 Subjective: Pain well-controlled. Breathing better today. Still no BM and feels bloated. Objective: Vital Signs Temp Pulse Resp BP Pulse Ox 36.7 C 80 20 110/70 94 05/04/17 07:14 05/04/17 07:14 05/04/17 07:14 05/04/17 07:14 05/04/17 07:14 Laboratory Results 05/02/17 06:25 05/03/17 08:52 05/03/17 05/04/17 05/05/17 05:59 05:59 05:59 Intake Total 1089 1163 Output Total 350 1925 Balance 739 -762 PT 13.8 SEC (12.0-15.0) 04/29/17 07:20 INR 1.07 (0.83-1.16) 04/29/17 07:20 Physical Exam - Physical Exam General Appearance: WD/WN, alert, no apparent distress, obese EENT: No scleral icterus (R), No scleral icterus (L) Neck: normal inspection Respiratory: No respiratory distress Cardiac/Chest: regular rate, rhythm Abdomen: non-tender, soft, distended Skin: normal color, warm/dry Extremities: pedal edema (trace b/l) Neuro/Psych: no motor/sensory deficits, alert, normal mood/affect, oriented x 3 ICD10 Worksheet Patient Problems: Problems Problem Status Onset CAD in [place] artery Acute S/P CABG x 1 Acute Sinus bradycardia Acute chronic disease mgmt/transitional care Acute CKD (chronic kidney disease), stage III Chronic HTN (hypertension) Chronic Hypothyroidism Chronic Peripheral neuropathy Chronic
[2017-05-04] MEDS ORDERED: BISACODYL 10 MG SUPP PR ONE (07:56)
[2017-05-04] MEDS: SENNOSIDES/DOCUSATE SODIUM TAB PO SCH ×2 (08:51→21:27)
[2017-05-04] MEDS: PANTOPRAZOLE SODIUM 40 MG TAB PO SCH (08:51)
[2017-05-04] MEDS: FUROSEMIDE 40 MG/4 ML VIAL IVP SCH (08:51)
[2017-05-04] MEDS: METOPROLOL TARTRATE 25 MG TAB PO SCH ×2 (08:51→21:27)
[2017-05-04] MEDS: ATORVASTATIN CALCIUM 40 MG TAB PO SCH (08:51)
[2017-05-04] MEDS: ASPIRIN EC 81 MG TAB PO SCH (08:53)
[2017-05-04] MEDS: AMIODARONE HCL 200 MG TAB PO SCH ×2 (08:53→21:27)
[2017-05-04] MEDS: SODIUM CL NASAL 45 ML BTL EACHNARE SCH ×2 (11:25→21:28)
[2017-05-04] MEDS ORDERED: FUROSEMIDE 40 MG/4 ML VIAL IVP ONE (14:42)
[2017-05-04 17:05] LABS: POTASSIUM 3.9 mEq/L (3.5-5.2)
[2017-05-05] MEDS: LEVOTHYROXINE 112 MCG TAB PO SCH (05:51)
[2017-05-05 07:17] VITALS: BP 111/70; TEMP 98.3
[2017-05-05 07:27] LABS: ANION GAP 10 mEq/L (8-16); CALCIUM 8.5 mg/dL (8.5-10.4); CARBON DIOXIDE 25 mEq/l (22-31); CHLORIDE 99 mEq/L (97-110); CREATININE 1.7 mg/dL (0.7-1.3); GLOMERULAR FILTRATION RATE 40; GLUCOSE 110 mg/dL (70-100); POTASSIUM 3.9 mEq/L (3.5-5.2); SODIUM 134 mEq/L (134-144)
--- NOTE | 2017-05-05 07:38 | SOAPPROG ---
SOAP Progress Note Assessment/Plan: Assessment: POD#4 Urgent CABGx1 (ALONSO-LAD) Sx severe ostial LAD disease w preserved LV systolic function - s/p CABGx1. Stable postop course. No dysrhythmias or significant fluid overload. Tubes and wires out. Secondary prevention w ASA, BB and statin. AF prophylaxis with amiodarone. DVT prophylaxis with SCDs alone. Acute expected blood loss anemia - Stable. No transfusions required. Acute postop respiratory insufficiency - Resolving with supportive therapies. Hx CKD s/p right nephrectomy - Baseline Cr. 1.5. Postop diuresis well tolerated. Plan: Ok for home. Relax diuresis. Instructions re diet, meds, activity, wound care and f/u to be reviewed in presence of brother. 05/05/17 07:32 Subjective: Feels well. Hearty appetite. Improving mobility. Satisfactory analgesia. +BM. Looking forward to shower and home. Objective: Vital Signs Temp Pulse Resp BP Pulse Ox 36.8 C 81 20 111/70 93 05/05/17 07:13 05/05/17 07:13 05/05/17 07:13 05/05/17 07:13 05/05/17 07:13 Laboratory Results 05/02/17 06:25 05/05/17 05:55 05/04/17 05/05/17 05/06/17 05:59 05:59 05:59 Intake Total 1163 1640 Output Total 1925 1500 Balance -762 140 PT 13.8 SEC (12.0-15.0) 04/29/17 07:20 INR 1.07 (0.83-1.16) 04/29/17 07:20 HR controlled. Rhythm sinus w occ PVCs, bigeminy. BP 110s. Almost off O2 at rest. Rapid desat with activity. Adequate fluid balance. Approaching baseline weight. Cr up slightly s/p intensified diuresis. Physical Exam - Physical Exam General Appearance: alert, no apparent distress Respiratory: normal breath sounds Cardiac/Chest: regular rate, rhythm, other (Sternotomy CDI) Abdomen: non-tender, soft Skin: warm/dry Extremities: swelling (trace dependent) ICD10 Worksheet Patient Problems: Problems Problem Status Onset CAD in [place] artery Acute S/P CABG x 1 Acute Sinus bradycardia Acute chronic disease mgmt/transitional care Acute CKD (chronic kidney disease), stage III Chronic H/O unilateral nephrectomy Chronic HTN (hypertension) Chronic Hypothyroidism Chronic Peripheral neuropathy Chronic
[2017-05-05] MEDS: METOPROLOL TARTRATE 25 MG TAB PO SCH (08:51)
[2017-05-05] MEDS: ASPIRIN EC 81 MG TAB PO SCH (08:52)
[2017-05-05] MEDS: PANTOPRAZOLE SODIUM 40 MG TAB PO SCH (08:52)
[2017-05-05] MEDS: ATORVASTATIN CALCIUM 40 MG TAB PO SCH (08:52)
[2017-05-05] MEDS ORDERED: SENNOSIDES/DOCUSATE SODIUM TAB PO PRN (09:00)
[2017-05-05] MEDS ORDERED: guaiFENesin 600 MG TAB.ER PO SCH (09:00)
--- NOTE | 2017-05-05 09:24 | PDHOMEO2F ---
Home Oxygen Face to Face Home Orders: I certify that a physician or a nurse practitioner or physician's social media assistant has had a [id number] encounter with this patient on the date of this order due to the diagnosis listed, which relates to the primary reason the patient requires home oxygen. Alternative treatments have been tried, or considered, and deemed ineffective. It is anticipated that supplemental oxygen will result in improvement with treatment. Home oxygen qualifying diagnosis: CAD SpO2 on room air (%): 83 Frequency of home oxygen needed: continuous Home oxygen liters per minute: 2 Home oxygen delivery device: nasal cannula Concentrator: Yes E-tanks for mobility and back up: Yes If ordering portable O2, is the patient mobile in the home?: Yes I certify that, based on these findings, the home oxygen is medically necessary for this patient for the following length of time. Length of time home oxygen needed: 1 month (outpt titration per cardiac rehab)
[2017-05-05 10:29] VITALS: PULSE 94; RESP 18; O2SAT 86
--- NOTE | 2017-05-05 14:52 | ASDISCHSUM ---
Discharge Information Plan Status:Home with No Needs Medically Cleared to Leave:05/05/2017 Discharge Date:05/05/2017 01:36 PM CM D/C Disposition:Home, Routine, Self-Care ADT D/C Disposition:Home, Routine, Self-Care Projected Discharge Date:05/02/2017 12:00 AM Transportation at D/C:Family Discharge Delay Reason: Follow-Up Date:05/02/2017 12:00 AM Discharge Slot: Final Diagnosis: Placement Information Patient Contact Information Contact Name:GIORGIO Relationship: Address: Home Phone: Work Phone: City: Alternate Phone: State/[place] Code: Email: Financial Information Financial Class: Primary Plan Desc:MEDICARE INPATIENT Primary Plan Number:[id number] Secondary Plan Desc:[employer]/MDR SUPPLEMENT Secondary Plan Number:[id number] Assessment Information [facility] CM Progress Note CM Note CM Note Notes: Pt is a 66 y/o man admitted w/ CAD. Pt is scheduled to have an open heart tomorrow. Pt will most likely d/c independent when medically stable. Therapies are not ordered. CM available for changes. Date Signed: 04/30/2017 03:54 PM Electronically Signed By:JOSE Johnson [facility] CM Progress Note CM Note CM Note Notes: 05/03/2017 Case Management Note: Met w/pt. Pt lives along but plans for brother Marily ([phone]) to take home from hospital and stay with pt for 1 to 2 weeks. Pt will use Via transport or friends to participate in Cardiac Outpatient Rehab. PT recommends Home w/ outpatient rehab. Pt baseline activity levels includes international travel and multiple road trips a year. Case Management d/c poc: Home independent w/family support when medically stable. 04/30/2017 CM Note Pt is a 66 y/o man admitted w/ CAD. Pt is scheduled to have an open heart tomorrow. Pt will most likely d/c independent when medically stable. Therapies are not ordered. CM available for changes. Date Signed: 05/03/2017 10:51 AM Electronically Signed By:Deedee Martin RN Intervention Information Intervention Type:*Incorrect Registration Date of Service:04/30/2017 12:02 PM Patient Type:Observation Staff Member:GALINDO Paul, Rita Hours: Discipline: Severity: Comment: Intervention Type:*IM-Signed Date of Service:05/05/2017 10:20 AM Patient Type:Inpatient Staff Member:Felicitas Mcrae Hours: Discipline: Severity: Comment:
--- NOTE | 2017-05-05 15:20 | PDDCSUM ---
Discharge Summary Discharge Summary: DATE OF ADMISSION: 04/29/17 DATE OF DISCHARGE: 05/05/17 DISPOSITION: Home, self-care PRINCIPAL ADMISSION DIAGNOSIS: Crescendo angina PRINCIPAL DISCHARGE DIAGNOSES: 1. Complex single vessel coronary artery disease 2. Mild carotid atherosclerosis 3. Status post coronary artery bypass grafting x 1 4. Acute expected blood loss anemia 5. Acute postoperative respiratory insufficiency HISTORY OF PRESENT ILLNESS: 66 yo male with a 4 wk hx of worsening exertional chest pains and dyspnea admitted for elective cardiac cath after an abnormal treadmill stress test. PERTINENT PAST MEDICAL HISTORY: Single kidney s/p right nephrectomy for renal cell carcinoma; CKD stage 3 with baseline Cr 1.4-1.5; hypertension; hypothyroidism; obesity. MEDICATIONS ON ADMISSION: Cozaar 50 mg daily, Synthroid 112 mcg daily, MVI daily, Vit D3 2,000 to 4,000 units daily. ALLERGIES/SENSITIVITIES: NKDA CONSULTANTS: Cardiovascular surgery ([facility]) PROCEDURES/IMAGIN/20 ([place]): Left heart catheterization with selective coronary angiography. Access via rt femoral artery. Findings: 70-80% ostial LAD stenosis. 20% D1 stenosis. LVEDP 15. 04/29 ([facility]): Intravascular ultrasound of left anterior descending coronary artery. Findings: 70% ostial LAD stenosis adjacent to ostium of dominant ramus intermedius. 04/29 Carotid ultrasound: Mild plaquing bilateral carotids. 05/01 ([facility]): Urgent coronary artery bypass grafting x 1 (ALONSO-LAD). ABBREVIATED HOSPITAL COURSE BY ACTIVE PROBLEM LIST: 1. Sx severe ostial LAD disease w preserved LV systolic function - Location of disease and proximity to [place] felt to pose prohibitive PCI risk. Successfully revascularized with an arterial graft. Uneventful postop course. No dysrhythmias or significant fluid overload. Secondary prevention w ASA, BB, and statin. 2. Acute expected blood loss anemia - Stable. No transfusions required. H/H > 12 /36 maintained. 3. Acute postoperative respiratory insufficiency - Exacerbated by habitus and pain. Gradual decrease in supplemental O2 requirement with supportive therapies. 4. Hx CKD3 - Stable. Actively diuresed as allowed by Cr. DISCHARGE CLINICAL INFORMATION: Sternum grossly stable. Sternotomy CDI, sutured, +Dermabond. HR 80s. SBP 110s. SpO2 83% RA ambulation, 86% RA rest, correcting to > 90% w 1 Lpm O2 rest and 2 Lpm O2 activity. Wt 2kg above admission at 108.8 kilos. Hgb 12.9, HCT 37.2, Plt 179, Na 134, K 3.9, Cr 1.7 DISCHARGE MEDICATIONS: As on admission with the following adjustments: 1. Hold Cozaar. NEW prescriptions: 1. ASA 81 mg daily. 2. Metoprolol tartrate 12.5 mg BID. 3. Atorvastatin 40 mg daily. 4. Guaifenesin 600 mg BID x 2 weeks. 5. Percocet 5/325 one half to two tabs q 4-6hrs prn incisional discomfort. 6. O2 continuously @ 1 Lpm rest and 2 Lpm activity. FOLLOW UP APPOINTMENTS: 1. CV surgery: with Dr Roldan at [facility] on 05/12 at 11:30 am. 2. Cardiology: with Dr Vee at [facility] within 4-6 weeks. Appointment to be established during surgical visit. FOLLOW UP TESTING: CXR prior to surgical appointment.
== END 2017-05-05 13:36 | disposition home or self-care (01) | DRG 233 ==
LOC: FCATH 07:01 → F2W 13:38 → OBSVTOIN 14:34 → F2W 15:35 → F2N 05-01 06:30 → F2W 05-02 15:04
PROVIDERS: ADMIT Internal Medicine Cardiovascular Disease; ATTEND Internal Medicine Cardiovascular Disease
PROC: B2111ZZ Fluoroscopy of Multiple Coronary Arteries using Low Osmolar Contrast (ICD-10-PCS; 2017-04-29)
PROC: 4A023N7 Measurement of Cardiac Sampling and Pressure, Left Heart, Percutaneous Approach (ICD-10-PCS; 2017-04-29)
PROC: 02100Z9 Bypass Coronary Artery, One Artery from Left Internal Mammary, Open Approach (ICD-10-PCS; principal; 2017-05-01 07:15)
PROC: 5A1221Z Performance of Cardiac Output, Continuous (ICD-10-PCS; principal; 2017-05-01 07:15)
DX: I25.110 Atherosclerotic heart disease of native coronary artery with unstable angina pectoris (principal); J95.1 Acute pulmonary insufficiency following thoracic surgery; D62 Acute posthemorrhagic anemia; N18.3 Chronic kidney disease, stage 3 (moderate); Z85.528 Personal history of other malignant neoplasm of kidney; Z90.5 Acquired absence of kidney; I10 Essential (primary) hypertension; E03.9 Hypothyroidism, unspecified
CPT/HCPCS: 82947-QW; 97112-GP; 97116-GP; 97161-GP; 97165-GO; 97530-GP; 97535-GO; C1753; C1760; C1769; C1887; G8978-GP-CJ; G8979-GP-CI; G8980-GP-CI; G8987-GO-CK; G8988-GO-CI; J0153; J0282; J0583; J0690; J1265; J1644; J1815; J1940; J2001; J2250; J2260; J2370; J2440; J2704; J2720; J2930; J3010; J7060; P9041; Q9967

== ENCOUNTER → 2017-05-11 | Outpatient (CLI) | payer OTHER, MEDICARE | LOC: FIMAGING 11:18 | PROVIDERS: ATTEND Thoracic Surgery (Cardiothoracic Vascular Surgery) | DX: J90 Pleural effusion, not elsewhere classified (principal); I80.01 Phlebitis and thrombophlebitis of superficial vessels of right lower extremity; I51.7 Cardiomegaly; Z95.1 Presence of aortocoronary bypass graft ==

== ENCOUNTER → 2017-05-26 | Outpatient (CLI) | payer OTHER, MEDICARE | LOC: FIMAGING 10:36 | PROVIDERS: ATTEND Thoracic Surgery (Cardiothoracic Vascular Surgery) | DX: Z95.1 Presence of aortocoronary bypass graft (principal); J90 Pleural effusion, not elsewhere classified; J98.11 Atelectasis ==

== ENCOUNTER → 2017-09-10 | Outpatient (CLI) | payer OTHER, MEDICARE | LOC: BMCIMAGING 11:31 | PROVIDERS: ATTEND Internal Medicine | DX: R05 Cough (principal) ==

== ENCOUNTER → 2019-01-27 | Outpatient (CLI) | payer OTHER, MEDICARE | LOC: FIMAGING 14:58 ==